=== PATIENT | female | born 1985 | race Two or more races ===

== ENCOUNTER 2021-10-17 18:52 | Emergency (ER) | payer MEDICAID, OTHER ==
[~2021-10-17] VITALS: Ht 177.8 cm; Wt 88.5 kg
[2021-10-18 01:53] VITALS: BP 145/91
== END 2021-10-18 02:08 | disposition home or self-care (01) ==
LOC: EDBD 18:52 → ER 19:02
DX: S00.12XA Contusion of left eyelid and periocular area, initial encounter (principal); E11.9 Type 2 diabetes mellitus without complications; I10 Essential (primary) hypertension; W18.39XA Other fall on same level, initial encounter; Y93.89 Activity, other specified; Y92.89 Other specified places as the place of occurrence of the external cause; Y99.8 Other external cause status
CPT/HCPCS: 70450; 70486

== ENCOUNTER → 2022-02-10 | Outpatient (CLI) | payer MEDICAID ==
[2022-02-10 12:25] LABS: Follicle Stimulating Hormone 1.01 IU/L (SEE BELOW)
== END | disposition home or self-care (01) ==
LOC: LAB 10:51
PROVIDERS: ATTEND Obstetrics & Gynecology
DX: N91.2 Amenorrhea, unspecified (principal)
CPT/HCPCS: 36415; 82670; 83001; 83002; 84702

== ENCOUNTER 2022-02-14 22:38 | Emergency (ER) | payer MEDICAID ==
[~2022-02-14] VITALS: Ht 177.8 cm; Wt 87.0 kg
[2022-02-15 06:35] VITALS: BP 183/93
== END 2022-02-15 07:30 | disposition home or self-care (01) ==
LOC: ER 22:38 → EDUNIT# 22:38 → ER 02-15 07:24
DX: S09.90XA Unspecified injury of head, initial encounter (principal); R51.9 Headache, unspecified; Z86.69 Personal history of other diseases of the nervous system and sense organs; I10 Essential (primary) hypertension; X58.XXXA Exposure to other specified factors, initial encounter; Y93.89 Activity, other specified; Y92.89 Other specified places as the place of occurrence of the external cause; Y99.8 Other external cause status

== ENCOUNTER 2022-02-18 06:43 | Emergency (ER) | payer MEDICAID ==
[~2022-02-18] VITALS: Ht 167.6 cm; Wt 73.0 kg
[2022-02-18 06:48] VITALS: BP 139/72
== END 2022-02-18 09:10 | disposition home or self-care (01) ==
LOC: ER 06:43 → EDBD 06:43 → ER 09:08
DX: S09.90XA Unspecified injury of head, initial encounter (principal); I10 Essential (primary) hypertension; E11.9 Type 2 diabetes mellitus without complications; Z86.69 Personal history of other diseases of the nervous system and sense organs; W01.198A Fall on same level from slipping, tripping and stumbling with subsequent striking against other object, initial encounter; Y93.89 Activity, other specified; Y92.89 Other specified places as the place of occurrence of the external cause; Y99.8 Other external cause status
CPT/HCPCS: 70450

== ENCOUNTER 2022-10-10 19:29 | Emergency (ER) | payer MEDICAID ==
[~2022-10-10] VITALS: Ht 162.6 cm; Wt 80.0 kg
[2022-10-10 21:25] LABS: Basophils # (auto) 0 10 ^3/uL (0-0.2); Mean Corpuscular Hgb Conc. 33.5 g/dL (32.0-36.0); Monocytes # (auto) 0.5 10 ^3/uL (0-1.3)
[2022-10-10 21:36] LABS: Basophils % (auto) 0.3 % (0.0-2.0); Eosinophils # (auto) 0.1 10 ^3/uL (0-0.8); Eosinophils % (auto) 1.7 % (0.0-7.0); Hematocrit 46.2 % (36.0-46.0); Hemoglobin 15.5 g/dL (12.2-16.2); Lymphocytes # (auto) 3.1 10 ^3/uL (0.4-5.4); Lymphocytes % (auto) 35.9 % (10.0-50.0); Mean Corpuscular Hemoglobin 28.9 pg (28.0-32.0); Mean Corpuscular Volume 86.3 fL (80.0-100.0); Monocytes % (auto) 6.4 % (0.0-12.0); Neutrophils # (auto) 4.7 10 ^3/uL (1.6-8.6); Neutrophils % (auto) 55.7 % (37.0-80.0); Nucleated Red Blood Cells % 0.1 %; Red Blood Cells 5.36 10^6/uL (4.0-5.20); White Blood Cell 8.5 10^3/uL (4.4-10.8)
[2022-10-10 21:48] LABS: Calcium 9.7 mg/dL (8.5-10.1); Chloride 110 mmol/L (98-107); Potassium 4.4 mmol/L (3.5-5.1); Sodium 137 mmol/L (136-145)
[2022-10-10 21:49] LABS: Salicylate < 1.7 mg/dL (2.8-20.0)
[2022-10-10 21:52] LABS: Acetaminophen < 2.0 ug/mL (10-30)
[2022-10-10 21:54] LABS: Alanine Aminotransferase 27 U/L (13-56); Albumin 4.2 g/dL (3.4-5.0); Alkaline Phosphatase 106 U/L (45-117); Anion Gap 3 (5-15); Aspartate Aminotransferase 20 U/L (15-37); Bilirubin, Total 0.6 mg/dL (0.2-1.0); Blood Alcohol < 3.0 mg/dL (0-5); Blood Urea Nitrogen 17 mg/dL (7-18); Carbon Dioxide 24 mmol/L (21-32); GFR African American 81 mL/min; GFR Non-African American 67 mL/min; Glucose 103 mg/dL (74-106); Total Protein 8.7 g/dL (6.4-8.2)
[2022-10-11 03:38] LABS: Urine Bacteria FEW /hpf (None Seen); Urine Blood Negative /uL (Negative); Urine Specific Gravity 1.024 (1.001-1.035); Urine WBC 6 /hpf (0 - 5)
[2022-10-11 03:51] LABS: Alcohol, Urine < 3.0 mg/dL (0-10); Amphetamine Screen, Urine NEGATIVE (NEGATIVE); Barbiturate Scree,Urine NEGATIVE (NEGATIVE); Benzodiazephine Screen, Urine NEGATIVE (NEGATIVE); Cannabinoid Screen, Urine NEGATIVE (NEGATIVE); Cocaine Screen, Urine NEGATIVE (NEGATIVE); Opiate Scree,Urine NEGATIVE (NEGATIVE); Phencyclidine Screen, Urine NEGATIVE (NEGATIVE)
[2022-10-11 09:30] VITALS: BP 125/75
== END 2022-10-11 13:58 | disposition home or self-care (01) ==
LOC: EDBD 19:29 → ER 19:29
DX: R45.851 Suicidal ideations (principal); I10 Essential (primary) hypertension; E11.9 Type 2 diabetes mellitus without complications; F32.9 Major depressive disorder, single episode, unspecified
CPT/HCPCS: 36415; 80053; 80307; 80320; 80329; 81001; 85025

== ENCOUNTER 2022-12-08 15:49 | Emergency (ER) | payer MEDICAID ==
[~2022-12-08] VITALS: Ht 167.6 cm; Wt 91.0 kg
[2022-12-09 00:20] LABS: Urine Bacteria NONE SEEN /hpf (None Seen); Urine Blood Negative /uL (Negative); Urine Mucus FEW (None Seen); Urine Specific Gravity 1.023 (1.001-1.035); Urine WBC 8 /hpf (0 - 5)
[2022-12-09 00:21] LABS: Alcohol, Urine < 3.0 mg/dL (0-10); Amphetamine Screen, Urine NEGATIVE (NEGATIVE); Barbiturate Scree,Urine NEGATIVE (NEGATIVE); Benzodiazephine Screen, Urine POSITIVE (NEGATIVE); Cannabinoid Screen, Urine NEGATIVE (NEGATIVE); Cocaine Screen, Urine NEGATIVE (NEGATIVE); Opiate Scree,Urine NEGATIVE (NEGATIVE); Phencyclidine Screen, Urine NEGATIVE (NEGATIVE)
[2022-12-09 08:07] VITALS: BP 125/72
[2022-12-09] MEDS ORDERED: NITR-87 PO (08:27)
== END 2022-12-09 08:43 | disposition home or self-care (01) ==
LOC: EDBD 15:49 → ER 15:49
DX: S80.12XA Contusion of left lower leg, initial encounter (principal); S80.11XA Contusion of right lower leg, initial encounter; R45.851 Suicidal ideations; N39.0 Urinary tract infection, site not specified; F32.9 Major depressive disorder, single episode, unspecified; I10 Essential (primary) hypertension; E11.9 Type 2 diabetes mellitus without complications; Y33.XXXA Other specified events, undetermined intent, initial encounter; Y93.89 Activity, other specified; Y92.098 Other place in other non-institutional residence as the place of occurrence of the external cause; Y99.8 Other external cause status
CPT/HCPCS: 80307; 81001

== ENCOUNTER 2023-11-15 18:07 | Emergency (ER) | payer MEDICAID ==
[~2023-11-15] VITALS: Ht 177.8 cm; Wt 90.9 kg
[~2023-11-15 18:07] MED LIST: IBUP1TAB5 PO; NITR-87 PO
[2023-11-15 20:53] LABS: Basophils # (auto) 0 10 ^3/uL (0-0.2); Basophils % (auto) 0.5 % (0.0-2.0); Eosinophils # (auto) 0.3 10 ^3/uL (0-0.8); Eosinophils % (auto) 3.1 % (0.0-7.0); Hematocrit 45.9 % (36.0-46.0); Hemoglobin 15.3 g/dL (12.2-16.2); Lymphocytes # (auto) 3.3 10 ^3/uL (0.4-5.4); Mean Corpuscular Hemoglobin 29.1 pg (28.0-32.0); Mean Corpuscular Hgb Conc. 33.4 g/dL (32.0-36.0); Monocytes # (auto) 0.5 10 ^3/uL (0-1.3); Monocytes % (auto) 6.1 % (0.0-12.0); Neutrophils # (auto) 4.3 10 ^3/uL (1.6-8.6); Neutrophils % (auto) 51.3 % (37.0-80.0); Nucleated Red Blood Cells % 0.1 %; Red Blood Cells 5.27 10^6/uL (4.0-5.20); Red Cell Distribution Width 14.5 % (11.8-14.3); White Blood Cell 8.4 10^3/uL (4.4-10.8)
[2023-11-15 21:05] LABS: Alanine Aminotransferase 89 U/L (7-40); Alkaline Phosphatase 124 U/L (46-116); Anion Gap 6 (5-15); Aspartate Aminotransferase 61 U/L (13-40); BUN/Creatinine Ratio 20.4 (10.0-20.0); Blood Urea Nitrogen 19 mg/dL (9-23); Calcium 10.6 mg/dL (8.5-10.1); Carbon Dioxide 24 mmol/L (20-30); Chloride 109 mmol/L (98-107); Glucose 108 mg/dL (74-106); Potassium 4.8 mmol/L (3.5-5.1); Sodium 139 mmol/L (136-145)
[2023-11-15 21:06] LABS: Albumin 4.9 g/dL (3.2-4.8); Total Protein 7.9 g/dL (5.7-8.2)
[2023-11-15 21:07] LABS: Bilirubin, Total 0.3 mg/dL (0.2-1.0)
[2023-11-16] MEDS ORDERED: ZOFR4T PO (00:51)
[2023-11-16] MEDS ORDERED: MECL25CH85 PO (00:51)
[2023-11-16 01:05] VITALS: BP 149/94; PULSE 104; RESP 18; TEMP 99.2; O2SAT 97
== END 2023-11-16 01:04 | disposition home or self-care (01) ==
LOC: ER 18:07 → EDBD 18:07 → ER 11-16 01:04
DX: S00.03XA Contusion of scalp, initial encounter (principal); R42 Dizziness and giddiness; I10 Essential (primary) hypertension; E11.9 Type 2 diabetes mellitus without complications; W18.09XA Striking against other object with subsequent fall, initial encounter; Y93.89 Activity, other specified; Y92.89 Other specified places as the place of occurrence of the external cause; Y99.8 Other external cause status
CPT/HCPCS: 36415; 70450; 80053; 84484; 85025; 93005

== ENCOUNTER 2024-02-20 20:00 | Emergency (ER) | payer MEDICAID ==
[~2024-02-20] VITALS: Ht 172.7 cm; Wt 90.9 kg
[~2024-02-20 20:00] MED LIST changes: +MECL25CH85 PO; +ZOFR4T PO
[2024-02-20 20:07] VITALS: BP 167/79
[2024-02-20] MEDS: LORazepam 0.5 MG TAB PO ONE (20:31)
[2024-02-20 20:35] VITALS: PULSE 85; RESP 18; TEMP 98.5; O2SAT 97
== END 2024-02-20 21:54 | disposition home or self-care (01) ==
LOC: EDBD 20:00 → ER 20:00
DX: S09.8XXA Other specified injuries of head, initial encounter (principal); F91.9 Conduct disorder, unspecified; I10 Essential (primary) hypertension; E11.9 Type 2 diabetes mellitus without complications; F32.9 Major depressive disorder, single episode, unspecified; W22.01XA Walked into wall, initial encounter; Y93.89 Activity, other specified; Y92.89 Other specified places as the place of occurrence of the external cause; Y99.8 Other external cause status
CPT/HCPCS: 70450

== ENCOUNTER 2024-08-25 20:21 | Emergency (ER) | payer MEDICAID ==
[~2024-08-25] VITALS: Ht 177.8 cm; Wt 82.0 kg
--- NOTE | 2024-08-25 20:45 | ED.PDOC ---
History of Present Illness HPI Comments 39 year old female who came to ER via EMS for headaches. Patient picked up at a board and care facility, was at the restroom earlier, she stood up, she felt dizzy and she fell down. Possibly hit the back of her head, right shoulder and back pains. Possibly loss of consciousness. Blood sugar on scene was 118 Chief Complaint: Headache Time Seen by MD: 20:44 Primary Care Provider: UNKNOWN Reviewed Notes: Nurses Notes Allergies: Coded Allergies: NO KNOWN ALLERGIES (Unverified , 12/08/22) Home Meds Active Scripts Ondansetron Odt 4MG Tab (ZOFRAN PO) 4 Mg Tb, 1 TAB PO Q8HPRN PRN, #10 TAB as needed for nausea vomiting ODT TAB-DISSOLVE IN MOUTH, THEN SWALLOW Prov:TANNER NICHOLAS RIVET TOSSER 11/16/23 Meclizine HCl (Antivert) 25 Mg Chw, 25 MG PO Q8HPRN PRN, #24 TAB.CHEW Needed for nausea vomiting Prov:TANNER NICHOLAS RIVET TOSSER 11/16/23 Ibuprofen Micronized (Ibuprofen) 600 Mg Tab, 1 TAB PO Q6H, #20 TAB As needed for pain Prov:TANNER NICHOLAS Q RIVET TOSSER 02/10/23 Nitrofurantoin Monohydrate Mac (Macrobid) 100 Mg Cap, 100 MG PO BID for 7 Days, #14 CAP Prov:DARION MCLAUGHLIN MD 12/09/22 Information Source: Patient Mode of Arrival: EMS Severity: Moderate Timing: Hours Duration: Since onset Prehospital treatment: None Past Medical History PAST MEDICAL HISTORY: Depression, DM, High Lipids, HTN Surgical History: Denies all surgeries INDUSTRIAL RENDERER History: No Pertinent INDUSTRIAL RENDERER History Family History Family History: Reviewed,noncontributory to illness Social History Smoker: Non-Smoker Alcohol: Denies ETOH Use Drugs: Denies Drug Use Lives In: Assisted Care Constitutional: denies: chills, diaphoresis, fatigue, fever, malaise, sweats, weakness, others EENTM: denies: blurred vision, double vision, ear bleeding, ear discharge, ear drainage, ear pain, ear ringing, eye pain, eye redness, hearing loss, mouth pain, mouth swelling, nasal discharge, nose bleeding, nose congestion, nose pain, photophobia, tearing, throat pain, throat swelling, voice changes, others Respiratory: denies: cough, hemoptysis, orthopnea, SOB at rest, shortness of breath, SOB with excertion, stridor, wheezing, others Cardiovascular: denies: chest pain, dizzy spells, diaphoresis, Dyspnea on exertion, edema, irregular heart beat, left arm pain, lightheadedness, palpitations, PND, syncope, others Gastrointestinal: denies: abdomen distended, abdominal pain, blood streaked bowels, constipated, diarrhea, dysphagia, difficulty swallowing, hematemesis, melena, nausea, poor appetite, poor fluid intake, rectal bleeding, rectal pain, vomiting, others Genitourinary: denies: abnormal vagina bleeding, burning, dyspareunia, dysuria, flank pain, frequency, hematuria, incontinence, pain, , vagina discharge, urgency, others Neurological: reports: headache; denies: dizziness, fainting, left sided numbness, left sided weakness, numbness, paresthesia, pre-existing deficit, right sided numbness, right sided weakness, seizure, speech problems, tingling, tremors, weakness, others Musculoskeletal: reports: back pain, joint pain (Right shoulder); denies: gout, joint swelling, muscle pain, muscle stiffness, neck pain, others Integumetry: denies: bruises, change in color, change in hair/nails, dryness, laceration, lesions, lumps, rash, wounds, others Allergic/Immunocompromised: denies: Difficulty Healing, Frequent Infections, Hives, Itching, others Hematologic/Lymphatic: denies: anemia, blood clots, easy bleeding, easy bruising, swollen glands, others Endocrine: denies: excessive hunger, excessive sweating, excessive thirst, excessive urination, flushing, intolerance to cold, intolerance to heat, unexplained weight gain, unexplained weight loss, others Psychiatric: denies: anxiety, bipolar disorder, depression, hopeless, panic disorder, schizophrenia, sleepless, suicidal, others Physical Exam General Appearance: No Apparent Distress, Normal HEENT: Normal ENT Inspection, Pharynx Normal, TMs Normal Neck: Full Range of Motion, Non-Tender, Normal, Normal Inspection Respiratory: Chest Non-Tender, Lungs Clear, No Accessory Muscle Use, No Respiratory Distress, Normal Breath Sounds Cardiovascular: No Edema, No JVD, No Murmur, No Gallop, Normal Peripheral Pulses, Regular Rate/Rhythm Breast Exam: Deferred Gastrointestinal: No Organomegaly, Non Tender, No Pulsatile Mass, Normal Bowel Sounds, Soft Genitalia: Deferred Pelvic: Deferred Rectal: Deferred Extremities: No calf tenderness, Normal capillary refill, Normal inspection, Normal range of motion, Non-tender, No pedal edema Musculoskeletal : Apperance: Normal Neurologic: Alert, manager treasury II-XII nml as Tested, No Motor Deficits, Normal Affect, Normal Mood, No Sensory Deficits Cerebellar Function: Normal Reflexes: Normal Skin: Dry, Normal Color, Warm Lymphatic: No Adenopathy Was a procedure done? Was a procedure done?: No Differential Dx Considerations may include: Head injury, syncopal attack, musculoskeletal pain X-Ray, Labs, Meds, VS Vital Signs Date Time Temp Pulse Resp B/P (MAP) Pulse Ox O2 Delivery O2 Flow Rate FiO2 08/25/24 20:29 99.2 102 18 138/78 (98) 98 99.2 EXAM: CT HEAD WITHOUT CONTRAST INDICATION: fall TECHNIQUE: CT of the head without intravenous contrast. Radiation Dose Information: CT Dose: CTDI volume is 59.6 mGy. Dose-length product is 1055.26 mGy*cm The dose indicators for CT are the volume Computed Tomography (CT) Dose Index (CTDIvol) and the Dose Length Product (DLP), and are measured in units of mGy and mGy-cm, respectively. These indicators are not patient dose, but values generated from the CT scanner acquisition factors. The report includes radiation exposure data for exposures received during this examination. COMPARISON: CT HEAD WITHOUT CONTRAST on DOS: 02/20/24, CT HEAD WITHOUT CONTRAST on DOS: 11/15/23, HEAD WITHOUT CONTRAST on DOS: 02/18/22 FINDINGS: There is no evidence of acute intracranial hemorrhage, extra-axial collection, mass effect, midline shift, herniation or hydrocephalus. The ventricles, sulci and cisterns are age appropriate. The moran-white differentiation is intact. Patchy periventricular and subcortical white matter hypoattenuation is nonspecific but may be related to small vessel ischemic disease. The visualized paranasal sinuses and mastoid air cells are clear. The surrounding soft tissues and osseous structures are unremarkable. IMPRESSION: 1. No acute intracranial hemorrhage 2. No CT findings of territorial ischemia. 3. No CT findings of displaced skull fracture. PROCEDURE(s): RSHD2 - R SHOULDER 2+ VIEW XRAY CLINICAL INDICATION: fall TECHNIQUE: 3 radiographic views of the right shoulder were obtained. Comparison: None FINDINGS/IMPRESSION: There is no evidence of acute fracture or dislocation. The visualized joint space is well maintained. The alignment is anatomical. There is no radiopaque foreign body. EXAM: CT THORACIC SPINE WO CONTRAS INDICATION: fall COMPARISON: None TECHNIQUE: Multiple axial CT images of the thoracic spine were obtained using bone algorithm. Axial and coronal reformatting was done. Bone and soft tissue windows were reviewed. Radiation Dose Information: CT Dose: CTDI volume is 37 mGy. Dose-length product is 1392.27 mGy*cm FINDINGS: No CT evidence of acute fracture or traumatic mal-alignment. The visualized paraspinal soft tissues are grossly unremarkable. Spinal stenosis at C5-6 and stenosis of the left neural foramen at C5-6. Thoracic vertebral fracture or posterior rib fractures. No bony central spinal stenosis. Can not exclude protruding disc or cord contusion if this is of clinical concern recommend MRI. The disc spaces are relatively preserved. There is multilevel degenerative change of the spine, with disc space narrowing, subchondral sclerosis, and marginal osteophyte formation. IMPRESSION: 1. No CT evidence of acute fracture or traumatic mal-alignment of the bony thoracic spine. Radiation optimization: All CT scans at this facility use at least one of these dose optimization techniques: automated exposure control mA and/or kV adjustment per patient size (includes targeted exams where dose is matched to clinical indication) or iterative reconstruction. The patient had a mechanical fall and will be discharged with ibuprofen. There are no fractures or dislocations. Time of 1ST Reevaluation: 20:40 Reevaluation 1ST: Unchanged Patient Education/Counseling: Diagnosis, Treatment Family Education/Counseling: Diagnosis, Treatment Departure 1 Departure Time of Disposition: 21:56 Impression: Primary Impression: Head contusion Qualified Codes: S00.83XA - Contusion of other part of head, initial encounter Additional Impressions: Shoulder sprain Qualified Codes: S43.401A - Unspecified sprain of right shoulder joint, initial encounter Sprain of upper back Qualified Codes: S23.3XXA - Sprain of ligaments of thoracic spine, initial encounter Disposition: HOME / SELF CARE / HOMELESS Condition: Serious e-Prescriptions Ibuprofen (Advil) 200 Mg Tab 800 MG PO TID, #30 TAB Prov: JOJO LAIRD MD 08/25/24 Discharged With: Griddle Cook Critical Care Note Critical Care Time?: No Stability Stability form required: No Heart Score Heart Score: Heart Score Response (Comments) Value History N/A 0 EKG N/A 0 Age N/A 0 Risk Factors N/A 0 Troponin N/A 0 Total 0 I personally scribed for JOJO LAIRD MD (DENEEN) on 08/25/24 at 20:45. Electronically submitted by Armando Vargas ([email or web address]). I personally scribed for JOJO LAIRD MD (DENEEN) on 08/25/24 at 21:32. Electronically submitted by Armando Vargas ([email or web address]). I personally scribed for JOJO LAIRD MD (DENEEN) on 08/25/24 at 21:34. Electronically submitted by Armando Vargas ([email or web address]). JOJO LAIRD MD Aug 25, 2024 20:45
--- NOTE | 2024-08-25 21:19 | DVH ---
EXAM: CT HEAD WITHOUT CONTRAST INDICATION: fall TECHNIQUE: CT of the head without intravenous contrast. Radiation Dose Information: CT Dose: CTDI volume is 59.6 mGy. Dose-length product is 1055.26 mGy*cm The dose indicators for CT are the volume Computed Tomography (CT) Dose Index (CTDIvol) and the Dose Length Product (DLP), and are measured in units of mGy and mGy-cm, respectively. These indicators are not patient dose, but values generated from the CT scanner acquisition factors. The report includes radiation exposure data for exposures received during this examination. COMPARISON: CT HEAD WITHOUT CONTRAST on DOS: 02/20/24, CT HEAD WITHOUT CONTRAST on DOS: 11/15/23, HEAD WITHOUT CONTRAST on DOS: 02/18/22 FINDINGS: There is no evidence of acute intracranial hemorrhage, extra-axial collection, mass effect, midline s hift, herniation or hydrocephalus. The ventricles, sulci and cisterns are age appropriate. The moran-white differentiation is intact. Patchy periventricular and subcortical white matter hypoattenuation is nonspecific but may be related to small vessel ischemic disease. The visualized paranasal sinuses and mastoid air cells are clear. The surrounding soft tissues and osseous structures are unremarkable. IMPRESSION: 1. No acute intracranial hemorrhage 2. No CT findings of territorial ischemia. 3. No CT findings of displaced skull fracture. HS:Y
--- NOTE | 2024-08-25 21:21 | DVH ---
CLINICAL INDICATION: fall TECHNIQUE: 3 radiographic views of the right shoulder were obtained. Comparison: None FINDINGS/IMPRESSION: There is no evidence of acute fracture or dislocation. The visualized joint space is well maintained. The alignment is anatomical. There is no radiopaque foreign body. HS:Y
--- NOTE | 2024-08-25 21:30 | DVH ---
EXAM: CT THORACIC SPINE WO CONTRAS INDICATION: fall COMPARISON: None TECHNIQUE: Multiple axial CT images of the thoracic spine were obtained using bone algorithm. Axial and coronal reformatting was done. Bone and soft tissue windows were reviewed. Radiation Dose Information: CT Dose: CTDI volume is 37 mGy. Dose-length product is 1392.27 mGy*cm FINDINGS: No CT evidence of acute fracture or traumatic mal-alignment. The visualized paraspinal soft tissues a re grossly unremarkable. Spinal stenosis at C5-6 and stenosis of the left neural foramen at C5-6. Thoracic vertebral fracture or posterior rib fractures. No bony central spinal stenosis. Can not exclude protruding disc or cord contusion if this is of clin ical concern recommend MRI. The disc spaces are relatively preserved. There is multilevel degenerative change of the spine, with disc space narrowing, subchondral sclerosis, and marginal osteophyte formation. IMPRESSION: 1. No CT evidence of acute fracture or traumatic mal-alignment of the bony thoracic spine. 2. Radiation optimization: All CT scans at this facility use at least one of these dose optimization te chniques: automated exposure control mA and/or kV adjustment per patient size (includes targeted exa ms where dose is matched to clinical indication) or iterative reconstruction. HS:Y
[2024-08-25] MEDS ORDERED: IBUP200T76 PO (21:59)
[2024-08-25] MEDS ORDERED: HYDR-4902 PO (21:59)
[2024-08-25 22:35] VITALS: BP 109/64; PULSE 92; RESP 17; TEMP 98.8; O2SAT 98
== END 2024-08-25 22:35 | disposition home or self-care (01) ==
LOC: EDBD 20:21 → ER 20:21
DX: S23.3XXA Sprain of ligaments of thoracic spine, initial encounter (principal); S43.401A Unspecified sprain of right shoulder joint, initial encounter; S00.93XA Contusion of unspecified part of head, initial encounter; I10 Essential (primary) hypertension; E11.9 Type 2 diabetes mellitus without complications; E78.5 Hyperlipidemia, unspecified; Z79.899 Other long term (current) drug therapy; W18.39XA Other fall on same level, initial encounter; Y93.89 Activity, other specified; Y92.89 Other specified places as the place of occurrence of the external cause; Y99.8 Other external cause status
CPT/HCPCS: 70450; 72128; 73030

== ENCOUNTER 2024-09-10 17:46 | Emergency (ER) | payer MEDICAID ==
[~2024-09-10] VITALS: Ht 180.3 cm; Wt 95.4 kg
[~2024-09-10 17:46] MED LIST changes: +IBUP200T76 PO
--- NOTE | 2024-09-10 18:05 | ED.PDOC ---
HPI (NEURO) HPI Comments PATIENT JERMAIN DUE TO A HEAD INJURY. PT WAS USING THE RESTROOM WHEN SHE REACHED FOR TOILET PAPER AND ACCIDENTLY HIT THE BACK OF HER HEAD ON A RAIL. DENIES ANY DIZZINESS OR LOC. NO VISIBLE BUMP OR REDNESS PRESENT Chief Complaint: Head Injury Time Seen by MD: 17:58 Primary Care Provider: UNKNOWN Reviewed Notes: Nurses Notes, Medications, Allergies Past Medical History PAST MEDICAL HISTORY: Depression, DM, High Lipids, HTN Surgical History: Denies all surgeries SUBSTATION OPERATOR HELPER History: No Pertinent SUBSTATION OPERATOR HELPER History Family History Family History: Reviewed,noncontributory to illness Social History Smoker: Non-Smoker Alcohol: Denies ETOH Use Drugs: Denies Drug Use Lives In: Assisted Care Constitutional: denies: chills, diaphoresis, fatigue, fever, malaise, sweats, weakness, others EENTM: denies: blurred vision, double vision, ear bleeding, ear discharge, ear drainage, ear pain, ear ringing, eye pain, eye redness, hearing loss, mouth pain, mouth swelling, nasal discharge, nose bleeding, nose congestion, nose pain, photophobia, tearing, throat pain, throat swelling, voice changes, others Respiratory: denies: cough, hemoptysis, orthopnea, SOB at rest, shortness of breath, SOB with excertion, stridor, wheezing, others Cardiovascular: denies: chest pain, dizzy spells, diaphoresis, Dyspnea on exertion, edema, irregular heart beat, left arm pain, lightheadedness, palpitations, PND, syncope, others Gastrointestinal: denies: abdomen distended, abdominal pain, blood streaked bowels, constipated, diarrhea, dysphagia, difficulty swallowing, hematemesis, melena, nausea, poor appetite, poor fluid intake, rectal bleeding, rectal pain, vomiting, others Genitourinary: denies: abnormal vagina bleeding, burning, dyspareunia, dysuria, flank pain, frequency, hematuria, incontinence, pain, , vagina discharge, urgency, others Neurological: reports: headache; denies: dizziness, fainting, left sided numbness, left sided weakness, numbness, paresthesia, pre-existing deficit, right sided numbness, right sided weakness, seizure, speech problems, tingling, tremors, weakness, others Musculoskeletal: denies: back pain, gout, joint pain, joint swelling, muscle pain, muscle stiffness, neck pain, others Integumetry: denies: bruises, change in color, change in hair/nails, dryness, laceration, lesions, lumps, rash, wounds, others Allergic/Immunocompromised: denies: Difficulty Healing, Frequent Infections, Hives, Itching, others Hematologic/Lymphatic: denies: anemia, blood clots, easy bleeding, easy bruising, swollen glands, others Endocrine: denies: excessive hunger, excessive sweating, excessive thirst, excessive urination, flushing, intolerance to cold, intolerance to heat, unexplained weight gain, unexplained weight loss, others Psychiatric: denies: anxiety, bipolar disorder, depression, hopeless, panic disorder, schizophrenia, sleepless, suicidal, others Physical Exam General Appearance: No Apparent Distress, Normal HEENT: Normal ENT Inspection, Pharynx Normal, TMs Normal Neck: Full Range of Motion, Non-Tender Respiratory: Chest Non-Tender, Lungs Clear, No Respiratory Distress, Normal Breath Sounds Cardiovascular: No Edema, No JVD, No Murmur, No Gallop, Normal Peripheral Puls es, Regular Rate/Rhythm Breast Exam: Deferred Gastrointestinal: No Organomegaly, Non Tender, No Pulsatile Mass, Normal Bowel Sounds, Soft Genitalia: Deferred Pelvic: Deferred Rectal: Deferred Extremities: Normal capillary refill, Normal inspection, Normal range of motion, Non-tender, No pedal edema Musculoskeletal : Apperance: Normal Neurologic: Alert, senior managing director II-XII nml as Tested, No Motor Deficits, Normal Affect, Normal Mood, No Sensory Deficits Cerebellar Function: Normal Reflexes: Normal Skin: Dry, Normal Color, Warm Lymphatic: No Adenopathy Was a procedure done? Was a procedure done?: No Differential Diagnosis (SZ) Headache: Intracerebral Hemorrhage, Subarachnoid Hemorrhage, Subdural Hemorrhage, Post-Traumatic X-Ray, Labs, Meds, VS Vital Signs Date Time Temp Pulse Resp B/P (MAP) Pulse Ox O2 Delivery O2 Flow Rate FiO2 09/10/24 18:18 87 16 95 Room Air 09/10/24 18:18 98.3 87 16 162/97 (118) 95 98.3 09/10/24 17:50 98.3 85 16 162/97 (118) 95 98.3 X-Ray, Labs, Meds, VS Comment CT HEAD SHOWS NO ACUTE FINDINGS DOES SHOW CHRONIC CONDITIONS BASED ON PATIENT'S MEDICAL HISTORY NO NOTED CHANGES. WORK SIGNED AND FILLED OUT FOR CARE PROVIDER. ADVISED TO FOLLOW UP PCP IN 1-2 DAYS. ADVISED TO MONITOR FOR THE NEXT 24-48 HOURS FOR CHANGE IN MENTATION, LETHARGY, SLURRED SPEECH, DIZZINESS, NON INTRACTABLE VOMITING, OR ANY CONCERNING SYMPTOMS RETURN TO THE ER OR CALL 911. ADVISED TO RE-EVALUATE THE BATHROOM FOR FALL SAFETY MEASURES AND RALES. ER RETURN PRECAUTIONS GIVEN PATIENT AND CARE TAKE HER INDICATES UNDERSTANDING AGREES WITH DISCHARGE PLAN OF CARE. Time of 1ST Reevaluation: 18:04 Reevaluation 1ST: Unchanged Time of 2ND Reevaluation: 18:50 Reevaluation 2ND: Improved Patient Education/Counseling: Diagnosis, Treatment, Prognosis, Need For Follow Up Family Education/Counseling: Diagnosis, Treatment, Prognosis, Need For Follow Up Departure 1 Departure Time of Disposition: 18:50 Impression: Primary Impression: Closed head injury Qualified Codes: S09.90XA - Unspecified injury of head, initial encounter Disposition: HOME / SELF CARE / HOMELESS Condition: Stable Discharged With: Insurance Loss Adjuster Critical Care Note Critical Care Time?: No Stability Stability form required: RINA Neumann Sep 10, 2024 18:05
[2024-09-10 18:18] VITALS: BP 162/97; PULSE 87; RESP 16; TEMP 98.3; O2SAT 95
--- NOTE | 2024-09-10 18:47 | DVH ---
CT HEAD WITHOUT CONTRAST INDICATION: S/P FALL HEAD INJURY COMPARISON: CT HEAD WITHOUT CONTRAST on DOS: 08/25/24 TECHNIQUE: CT of the head without intravenous contrast. RADIATION DOSE: CTDIvol: mGy, DLP: mGy*cm FINDINGS: There is no evidence of intracranial hemorrhage, extra-axial collection, mass effect, midline shift, herniation or hydrocephalus. The ventricles, sulci and cisterns are normal. The moran-white different iation is normal. Cerebellar volume loss. Visualized paranasal sinuses and mastoid air cells are jailene r. Soft tissues and osseous structures are unremarkable. IMPRESSION: No hemorrhage or other acute intracranial abnormality. Cerebellar volume loss.
== END 2024-09-10 19:11 | disposition home or self-care (01) ==
LOC: ER 17:46 → EDBD 17:46 → ER 19:11
DX: S09.90XA Unspecified injury of head, initial encounter (principal); I10 Essential (primary) hypertension; E11.9 Type 2 diabetes mellitus without complications; E78.5 Hyperlipidemia, unspecified; F32.A Depression, unspecified; W22.8XXA Striking against or struck by other objects, initial encounter; Y93.89 Activity, other specified; Y92.89 Other specified places as the place of occurrence of the external cause; Y99.8 Other external cause status
CPT/HCPCS: 70450